=== PATIENT | female | born 1980 | race Caucasian/White ===

== ENCOUNTER → 2016-09-18 | Outpatient (CLI) | payer MEDICARE, OTHER ==
[~2016-09-18] MED LIST: ALDACTONE25 MG PO; ASPIR-LOW81 MG PO; FENOFIBRATE145 MG PO; IBUPROFEN800 MG PO; LISINOPRIL40 MG PO; LOVASTATIN20 MG PO; METOPROLOL TART25 MG PO; NAPROXEN 250 M250 MG PO; NORCO 5-325 TA1 EACH PO; PROTONIX40 MG PO; VALIUM 5 MG TAB5 MG PO; ZOFRAN ODT8 MG PO
== END ==
LOC: KOH-I 12:06
DX: R05 Cough (principal)
CPT/HCPCS: 71020

== ENCOUNTER → 2020-05-09 | Outpatient (CLI) | payer MEDICARE, OTHER ==
[~2020-05-09] MED LIST changes: +BACTROBAN OINT22 GM EXT; +KEFLEX CAP 500500 MG PO
== END ==
LOC: KOH-I 12:38
DX: M54.9 Dorsalgia, unspecified (principal); R05 Cough; M51.34 Other intervertebral disc degeneration, thoracic region; M51.36 Other intervertebral disc degeneration, lumbar region
CPT/HCPCS: 71046; 72050; 72070; 72110

== ENCOUNTER → 2021-01-05 | Outpatient (CLI) | payer MEDICARE ==
[2021-01-05 08:09] LABS: HEMOGLOBIN 14.4 gm/dl (12.3-15.3); RED BLOOD COUNT 4.67 M/UL (4.00-5.10); WHITE BLOOD COUNT 11.6 K/UL (4.5-11.0)
[2021-01-05 08:31] LABS: BUN/CREATININE RATIO 14 (0-10)
[2021-01-06 08:15] LABS: HBSAG SCREEN Negative (Negative); HEP A AB, IGM Negative (Negative); HEP B CORE AB, IGM Negative (Negative); HEP C VIRUS AB <0.1 (0.0-0.9)
[2021-01-06 10:15] LABS: FSH 4.8 mIU/mL (.); LUTEINIZING HORMONE(LH) 5.2 mIU/mL (.)
[2021-01-06 12:16] LABS: ANTISTREPTOLYSIN O AB 88.9 IU/mL (0.0-200.0); RHEUMATOID ARTHRITIS FACTOR <10.0 IU/mL (0.0-13.9)
== END ==
LOC: LAB 07:44
PROVIDERS: Nurse Practitioner Family
DX: Z00.00 Encounter for general adult medical examination without abnormal findings (principal); M12.9 Arthropathy, unspecified; R53.83 Other fatigue; E78.5 Hyperlipidemia, unspecified; I10 Essential (primary) hypertension; M25.50 Pain in unspecified joint; Z79.899 Other long term (current) drug therapy
CPT/HCPCS: 36415; 80053; 80061; 80074; 82150; 82670; 83001; 83002; 83690; 84443; 84550; 85027; 85652; 86038; 86060; 86140; 86431

== ENCOUNTER 2021-08-17 13:03 | Emergency (ER) | payer MEDICARE, OTHER ==
[2021-08-17 14:20] LABS: HEMOGLOBIN 13.8 gm/dl (12.3-15.3); RED BLOOD COUNT 4.51 M/UL (4.00-5.10); WHITE BLOOD COUNT 11.6 K/UL (4.5-11.0)
[2021-08-17 15:31] LABS: BUN/CREATININE RATIO 15 (0-10)
== END 2021-08-17 17:35 | disposition home or self-care (01) ==
LOC: ER1 13:03
PROVIDERS: Physician Assistant
DX: O20.9 Hemorrhage in early pregnancy, unspecified (principal); Z3A.08 8 weeks gestation of pregnancy; Z88.5 Allergy status to narcotic agent
CPT/HCPCS: 76817; 80053; 81001; 84702; 85025; 86900; 86901; 87086; 99284

== ENCOUNTER → 2021-08-18 | Outpatient (CLI) | payer SELFPAY | LOC: LAB 12:41 | DX: Z32.00 Encounter for pregnancy test, result unknown (principal) | CPT/HCPCS: 36415; 84702 ==

== ENCOUNTER → 2021-08-21 | Outpatient (CLI) | payer MEDICARE, OTHER | LOC: LAB 15:01 | DX: O20.0 Threatened abortion (principal) | CPT/HCPCS: 36415; 84702 ==

== ENCOUNTER → 2021-12-19 | Outpatient (CLI) | payer MEDICARE | LOC: KOH-I 12:03 | DX: M79.671 Pain in right foot (principal); R60.0 Localized edema | CPT/HCPCS: 73630 ==

== ENCOUNTER → 2022-02-01 | Outpatient (CLI) | payer MEDICARE ==
[2022-02-01 09:11] LABS: HEMOGLOBIN 14.1 gm/dl (12.3-15.3); RED BLOOD COUNT 4.71 M/UL (4.00-5.10); WHITE BLOOD COUNT 10.8 K/UL (4.5-11.0)
[2022-02-01 09:31] LABS: BUN/CREATININE RATIO 25 (0-10)
== END ==
LOC: LAB 08:26
PROVIDERS: Surgery
DX: R19.7 Diarrhea, unspecified (principal); R19.4 Change in bowel habit
CPT/HCPCS: 36415; 80048; 85025; 87045; 87046; 87177; 87209